=== PATIENT | female | born 1950 | race Caucasian/White ===

== ENCOUNTER → 2018-10-10 | Day surgery (SDC) | payer MEDICARE, BC ==
[2018-10-07 11:30] VITALS: BMI 48.5
[~2018-10-10] MED LIST: Ketamine 50 MG/ML (10ML VIAL) ONE
--- NOTE | 2018-10-10 11:27 | RAD ---
XR Lumbar Spine 2 Or 3 View History: Pre-MRI. Pain. Comparison: None. Findings: 5 nonrib-bearing lumbar type vertebrae. There is degenerative disc space disease at T12/L1 and L1/L2. In neutral position is 2 mm L4 over L5 anterolisthesis as well as 2 mm L2-L3 retrolisthesis and 4 mm L1 over L2 retrolisthesis. No significant translation with flexion or extensi on. Advanced degenerative disc space height loss L5-S1. Subcortical cysts are present in the right acetab ulum. Left hip arthroplasty. No abnormal calcifications are appreciated. Advanced facet arthrosis L4-S1. Mild narrowing of the interspinous space at L4-L5. Moderate vascular calcifications. Impression: Advanced degenerative changes without significant translation with flexion or extension.
== END ==
LOC: SDC/OP 09:43
PROVIDERS: ATTEND Surgery
DX: M51.25 Other intervertebral disc displacement, thoracolumbar region (principal); M51.36 Other intervertebral disc degeneration, lumbar region
CPT/HCPCS: 72100

== ENCOUNTER 2019-04-21 07:19 | Outpatient (CLI) | payer MEDICARE, BC ==
[2019-04-21 11:29] LABS: #Eosinphils 0.3 thou/uL (0.0-0.7); #Lymphocytes 2.4 thou/uL (1.20-3.40); #Monocytes 0.7 thou/uL (0.11-0.59); #Neutrophils 4.6 thou/uL (1.40-6.50); %Basophils 0.6 % (0.0-1.0); %Eosinophils 3.7 % (0.0-10.0); %Lymphocytes 29.8 % (21.0-51.0); %Monocytes 8.6 % (0.0-10.0); %Neutrophils 57.3 % (42.0-75.0); Hemoglobin 14.6 g/dL (12.0-16.0); Mean Corpuscular HGB CONC 33.3 g/dL (32.0-36.0); Mean Corpuscular Hemoglobin 31.9 pg (27.0-31.0); Mean Corpuscular Volume 95.6 fL (78.0-98.0); Mean Platelet Volume 8.6 fL (7.4-10.4); Platelet Count 244 thou/uL (130-400); RBC Distribution Width 13.3 % (11.5-14.5); White Blood Cell (WBC) Count 7.9 thou/uL (4.8-10.8)
[2019-04-21 11:38] LABS: Bacteria/HPF None Seen HPF (None Seen); Bilirubin Negative (Negative); Blood, Urine Negative (Negative); Clarity Clear (Clear); Glucose, Urine (Dipstick) Normal (Negative); Leukocyte Negative Leu/uL (Negative); Nitrite Negative (Negative); Protein, Urine (Dipstick) Negative (Neg-Trace); RBC/HPF 0-3 HPF (0-3); Squamous Epithelial 0-3 HPF (0-3); Urobilinogen Normal mg/dL (Less than 2)
[2019-04-21 11:41] LABS: INR-International Normal Ratio 0.9; Prothrombin Time 12.3 SEC (12.0-14.7)
[2019-04-21 11:47] LABS: Anion Gap 14 mmol/L (10-20); BUN (Urea Nitrogen) 22 mg/dL (9.8-20.1); Calc. Creatinine Clearance 0 mL/min (70-130); Calcium 9.7 mg/dL (7.8-10.44); Carbon Dioxide 30 mmol/L (23-31); Chloride 100 mmol/L (98-107); Estimated GFR-MDRD 75; Glucose 104 mg/dL (80-115); Potassium 4.3 mmol/L (3.5-5.1); Sodium 140 mmol/L (136-145)
== END 2019-04-21 07:20 | disposition home or self-care (01) ==
LOC: LABBT 07:19
PROVIDERS: ATTEND Orthopaedic Surgery
DX: Z01.812 Encounter for preprocedural laboratory examination (principal); M16.11 Unilateral primary osteoarthritis, right hip
CPT/HCPCS: 80048; 81001; 85025; 85610; 87081

== ENCOUNTER 2019-04-21 10:15 | Inpatient (IN) | payer MEDICARE, BC ==
[2019-04-21 10:26] VITALS: BMI 47.2
[2019-05-02] MEDS ORDERED: Sodium Chloride 0.9% 100 ML ONE (09:06)
[2019-05-02] MEDS ORDERED: Tranexamic Acid 1,000 MG/10 ML VIAL ONE (09:06)
[2019-05-02] MEDS ORDERED: Midazolam HCl 2 mg/2 ml Vial ONE (10:04)
[2019-05-02] MEDS ORDERED: Fentanyl 100 MCG/2 ML VIAL ONE ×4 (10:04→14:18)
[2019-05-02] MEDS ORDERED: PROPOFOL 200 MG/20 ML VIAL ONE (10:16)
[2019-05-02] MEDS ORDERED: Dexamethasone 20 MG/5 ML VIAL ONE (10:16)
[2019-05-02] MEDS ORDERED: Lidocaine 1.5% w/Epi 1:200K 30 ML VIAL (Epid Use) ONE (10:16)
[2019-05-02] MEDS ORDERED: Rocuronium Bromide 10 MG/ML (10ML VIAL) ONE (10:16)
[2019-05-02] MEDS ORDERED: PHENYLEPHRINE-NS 100 MCG/ML 10 ML SYRINGE ONE (10:16)
[2019-05-02] MEDS ORDERED: Ondansetron PF 4 MG/2 ML Vial ONE (10:16)
[2019-05-02] MEDS ORDERED: Lidocaine 1% PF 5 ML VIAL ONE (10:16)
[2019-05-02] MEDS ORDERED: Glycopyrrolate 0.2 MG/ML 5 ML SYRINGE ONE (10:16)
[2019-05-02] MEDS ORDERED: Bupivacaine 0.25% HCL 30 ML VIAL ONE (10:47)
[2019-05-02] MEDS ORDERED: Acetaminophen 325 MG TAB PO PRN ×2 (11:04→12:43)
[2019-05-02] MEDS ORDERED: Promethazine HCl 25 MG/ML VIAL IM PRN ×2 (11:15→12:43)
[2019-05-02] MEDS ORDERED: Bupivacaine 0.25% 10 ML VIAL EPIDURAL PRN (11:15)
[2019-05-02] MEDS ORDERED: Zolpidem Tartrate 5 MG TAB PO PRN ×2 (11:15→12:43)
[2019-05-02] MEDS ORDERED: Ondansetron PF 4 MG/2 ML Vial IVP PRN ×2 (11:15→12:43)
[2019-05-02] MEDS ORDERED: Naloxone HCl 0.4 mg/ml Vial IV PRN (11:15)
[2019-05-02] MEDS ORDERED: Promethazine HCl 25 MG SUPP PR PRN (11:15)
[2019-05-02] MEDS ORDERED: diphenhydrAMINE 50 MG/ML VIAL IVP PRN (11:15)
[2019-05-02] MEDS ORDERED: HYDROcodone/Acetaminophen 5/325 mg Tablet PO PRN (11:15)
[2019-05-02] MEDS ORDERED: diphenhydrAMINE 25 MG CAP PO PRN ×2 (11:15→12:43)
[2019-05-02] MEDS ORDERED: diphenhydrAMINE 50 MG/ML VIAL IM PRN (11:15)
[2019-05-02] MEDS ORDERED: traMADol HCl 50 MG TAB PO PRN ×2 (11:15)
[2019-05-02] MEDS ORDERED: Hydrocerin (Eucerin) Cream 120 gm Jar TOP PRN (11:15)
[2019-05-02] MEDS ORDERED: Naloxone HCl 0.4 mg/ml Vial IVP PRN (11:15)
[2019-05-02] MEDS ORDERED: Ketorolac Tromethamine 30 MG/ML VIAL IVP SCH (12:00)
[2019-05-02] MEDS ORDERED: Ketorolac Tromethamine 30 MG/ML VIAL IVP PRN (12:43)
[2019-05-02] MEDS ORDERED: HYDROcodone/Acetaminophen 10/325 mg Tablet PO PRN ×2 (12:43)
[2019-05-02] MEDS ORDERED: PROVENTIL INHALER 6.7 G (200 INHALATIONS) INH PRN (12:50)
[2019-05-02] MEDS ORDERED: Ondansetron HCl/PF 4 MG/2 ML Vial IVP PRN (13:06)
[2019-05-02] MEDS ORDERED: Ketorolac Tromethamine 30 MG/ML VIAL ONE (13:33)
--- NOTE | 2019-05-02 14:16 | RAD ---
EXAM: 2 views of the right hip HISTORY: Status post right hip arthroplasty COMPARISON: None FINDINGS: 2 views of the right hip shows the patient is status post right hip arthroplasty without pe rihardware lucency or fracture. IMPRESSION: Status post right hip arthroplasty without evidence of complication.
[2019-05-02] MEDS: Sodium Chloride 0.9% 1,000 ML IV SCH ×2 (14:47→21:31)
[2019-05-02] MEDS: Gabapentin 300 MG CAP PO SCH ×2 (17:57→21:27)
[2019-05-02] MEDS: Acetaminophen 500 MG TAB PO SCH (21:27)
[2019-05-02] MEDS: Aspirin 81 mg Enteric Coated Tablet PO SCH (21:27)
[2019-05-02] MEDS: Ferrous Gluconate 324 MG TAB PO SCH (21:27)
[2019-05-02] MEDS: Senokot S 8.6-50 MG TAB PO SCH (21:28)
[2019-05-02] MEDS: Simvastatin 20 MG TAB PO SCH (21:28)
[2019-05-02] MEDS: Losartan 25 MG TAB PO SCH (21:28)
[2019-05-02] MEDS: OXcarbazepine 150 MG TAB PO SCH (21:28)
[2019-05-03 04:51] LABS: Hemoglobin 11.9 g/dL (12.0-16.0); Mean Corpuscular HGB CONC 34.1 g/dL (32.0-36.0); Mean Corpuscular Hemoglobin 32.6 pg (27.0-31.0); Mean Corpuscular Volume 95.6 fL (78.0-98.0); Mean Platelet Volume 9.3 fL (7.4-10.4); Platelet Count 174 thou/uL (130-400); RBC Distribution Width 13.3 % (11.5-14.5); Red Blood Cell (RBC) Count 3.66 mill/uL (4.20-5.40); White Blood Cell (WBC) Count 10.7 thou/uL (4.8-10.8)
[2019-05-03] MEDS: fentaNYL Citrate/PF 500 MCG, Bupivacaine 10 ML in Sodium Chloride 0.9% 80 ML EPIDURAL SCH ×2 (05:37→21:48)
[2019-05-03] MEDS: Acetaminophen 500 MG TAB PO SCH ×2 (08:09→20:33)
[2019-05-03] MEDS: Aspirin 81 mg Enteric Coated Tablet PO SCH ×2 (08:09→20:33)
[2019-05-03] MEDS: OXcarbazepine 300 MG TAB PO SCH (08:09)
[2019-05-03] MEDS: Senokot S 8.6-50 MG TAB PO SCH ×2 (08:09→20:32)
[2019-05-03] MEDS: Multivitamin W/ Minerals 1 TAB PO SCH (08:09)
[2019-05-03] MEDS: Gabapentin 300 MG CAP PO SCH ×3 (08:10→20:32)
[2019-05-03] MEDS: Ferrous Gluconate 324 MG TAB PO SCH ×2 (08:10→20:32)
[2019-05-03] MEDS: HYDROcodone/Acetaminophen 5/325 mg Tablet PO PRN ×2 (08:10→13:31)
--- NOTE | 2019-05-03 08:32 | OP ---
DATE OF PROCEDURE: 05/02/2019 PREOPERATIVE DIAGNOSIS: Degenerative joint disease, right hip. POSTOPERATIVE DIAGNOSIS: Degenerative joint disease, right hip. PROCEDURE PERFORMED: Right total hip arthroplasty using a [place] Accolade II #5 stem, 54 mm Tritanium cup, a ceramic 36-mm, -5 head. ASSISTANTS: Kieran. BLOOD LOSS: 300. SPECIMEN: None. DRAINS: None. COMPLICATIONS: None. PROCEDURE IN DETAIL: After informed consent was obtained in the preoperative holding area, the patient was taken to the operative suite where general anesthesia was induced. The patient was then positioned in the lateral decubitus position. The hip was then prepped and draped in usual sterile fashion. The patient received preoperative antibiotics. Prior to incision, time-out was called and all members of the surgical team agreed upon site, surgeon, and patient. After this, a longitudinal incision was made directly over the trochanter, noted by palpation extending 2 fingerbreadths above and below the trochanter. The deeper subcutaneous layer was undermined with Bovie electrocautery. The iliotibial band was encountered and incised sharply and the plane below this was developed bluntly. A Charnley retractor was placed to hold this opened. The lateral aspect of the trochanter and the abductor muscles were encountered and then reflected anteriorly off the trochanter using Bovie electrocautery. Once this was completed, the anterior capsule was then encountered and identified and copious capsulotomy was carried out, exposing the femoral neck and head. Dislocation maneuver was then performed and an in situ provisional neck cut was then made using the oscillating saw. Attention was then turned to acetabular preparation and sequential reaming was carried out up to the appropriate diameter. A trial was then malleted into place with good firm resistance and no pullout. The permanent acetabular shell was then malleted squarely into place, as was the appropriate liner. Once completed, the wound was copiously irrigated and attention was then turned to femoral preparation. Flexion and external rotation were performed of the exposed thigh and femoral elevators were then placed at the proximal aspect of the wound. Canal finder was used to establish the length of the canal and sequential reaming was carried out, followed by broaching. Once the appropriate stability was established with the trial broaches with flexion, extension and rotational stability, we did trial with neutral and 2 mm offset incremental necks. Once the appropriate size was decided upon, with good stability noted with flexion, extension, internal and external rotation and shuck being negative, we removed the femoral trial broach and malletted into place the permanent prosthesis with good firm fit, which was also stable to rotation. Again, the hip felt very stable to flexion, extension, internal and external rotation. Leg lengths appeared near anatomic clinically and we were quite happy with prosthesis placement. Copious irrigation was then carried out through the entirety of the wound. Primary closure of the abductors was accomplished with interrupted #2 Vicryl [id number] stitches and the IT band was then closed with interrupted #2 Vicryl, oversewn with a #2 running barbed Quill stitch. Subcutaneous fascia was closed with running barbed Quill stitch and a subcuticular Monocryl barbed Quill stitch was used for skin closure and augmented with skin cement. A sterile dressing was applied. The procedure was terminated without any complication. All counts were correct. The patient was awakened in the operative suite and taken to the recovery room in stable condition. Job ID: [id number]
[2019-05-03] MEDS ORDERED: [UNRECOGNIZED DRUG - OTHER] PO SCH (09:00)
[2019-05-03] MEDS: Sodium Chloride 0.9% 1,000 ML IV SCH ×2 (11:24→18:55)
[2019-05-03] MEDS: Losartan 25 MG TAB PO SCH ×2 (11:24→20:30)
[2019-05-03] MEDS: Hydrochlorothiazide 25 MG TAB PO SCH (11:24)
--- NOTE | 2019-05-03 12:00 | PDOC.HOSPP ---
- Subjective Encounter Date: 05/03/19 Encounter Time: 07:45 Subjective: Patient seen and examined. No new complaints. No overnight events pt had right hip replacement consulted for medical management pt has no pain her BP is low but she is asymptomatic she has epidural, she is seated in chair, her is bedside she has walked few steps this morning - Objective Vital Signs & Weight: Vital Signs (12 hours) Temp Pulse Resp BP BP Pulse Ox 05/03/19 09:20 125/69 05/03/19 08:02 98.2 F 76 20 99/64 96 05/03/19 03:19 98.2 F 77 18 114/66 97 Weight Weight 302 lb I&O: 05/02/19 05/03/19 05/04/19 06:59 06:59 06:59 Intake Total 3360 Output Total 1350 Balance 2009 Result Diagrams: 05/03/19 04:16 Radiology Reviewed by me: Yes EKG Reviewed by me: Yes Hospitalist ROS - Review of Systems Eyes: denies: pain, vision change, conjunctivae inflammation, eyelid inflammation, redness, other ENT: denies: ear pain, ear discharge, nose pain, nose discharge, nose congestion , mouth pain, mouth swelling, throat pain, throat swelling, other Respiratory: denies: cough, dry, shortness of breath, hemoptysis, SOB with excertion, pleuritic pain, sputum, wheezing, other Cardiovascular: denies: chest pain, palpitations, orthopnea, paroxysmal noc. dyspnea, edema, light headedness, other Gastrointestinal: denies: nausea, vomiting, abdominal pain, diarrhea, constipation, melena, hematochezia, other Genitourinary: denies: dysuria, frequency, incontinence, hematuria, retention, other Musculoskeletal: reports: back pain. denies: neck pain, shoulder pain, arm pain , hand pain, leg pain, foot pain, other - Medication Medications: Active Medications Generic Name Dose Route Start Last Admin Trade Name Freq PRN Reason Stop Dose Admin Acetaminophen 1,000 mg 05/02/19 21:00 05/03/19 08:09 Tylenol PO 500 mg BID BLANCA Administration Hydrocodone Bitart/Acetaminophen 1 tab 05/02/19 11:15 05/03/19 08:10 [place] 5/325 PO 1 tab Q4H PRN Administration Mild Pain 1-3 Aspirin 81 mg 05/02/19 21:00 05/03/19 08:09 Ecotrin PO 81 mg BID BLANCA Administration Ferrous Gluconate 324 mg 05/02/19 21:00 05/03/19 08:10 Fergon PO 324 mg BID BLANCA Administration Gabapentin 300 mg 05/02/19 15:00 05/03/19 08:10 Neurontin PO 300 mg TID BLANCA Administration Hydrochlorothiazide 25 mg 05/03/19 09:00 05/03/19 11:24 Hydrochlorothiazide PO Not Given DAILY BLANCA Fentanyl Citrate 500 mcg/ 100 mls @ 6 mls/hr 05/02/19 11:15 05/03/19 05:37 Bupivacaine HCl 10 ml/ Sodium EPIDURAL 100 mls Chloride INF BALNCA Administration Sodium Chloride 1,000 mls @ 100 mls/hr 05/02/19 12:45 05/03/19 11:24 Normal Saline 0.9% IV Not Given .Q10H BLANCA Iron/Minerals/Multivitamins 1 tab 05/03/19 09:00 05/03/19 08:09 Theragran M PO 1 tab DAILY BLANCA Administration Losartan Potassium 50 mg 05/02/19 21:00 05/03/19 11:24 Cozaar PO Not Given BID BLANCA Oxcarbazepine 150 mg 05/02/19 21:00 05/02/19 21:28 Trileptal PO 150 mg HS BLANCA Administration Oxcarbazepine 300 mg 05/03/19 09:00 05/03/19 08:09 Trileptal PO 300 mg DAILY BLANCA Administration Senna/Docusate Sodium 2 tab 05/02/19 21:00 05/03/19 08:09 Senokot S PO 2 tab BID BLANCA Administration Simvastatin 20 mg 05/02/19 21:00 05/02/19 21:28 Zocor PO 20 mg QPM BLANCA Administration Sodium Chloride 10 ml 05/02/19 12:43 05/03/19 08:12 Flush - Normal Saline IVF 10 ml PRN PRN Administration Saline Flush - Exam General Appearance: NAD, awake alert Eye: PERRL, anicteric sclera ENT: normocephalic atraumatic, no oropharyngeal lesions Neck: supple, symmetric, no JVD, no thyromegaly Heart: RRR, no murmur, no gallops, no rubs Respiratory: CTAB, no wheezes, no rales, no ronchi Gastrointestinal: soft, non-tender, non-distended, normal bowel sounds Gastrointestinal - other findings: morbid obesity Extremities: no cyanosis, no clubbing, no edema Skin: normal turgor, no lesions Neurological: cranial nerve grossly intact, normal sensation to touch, no weakness, no focal deficits Musculoskeletal: normal tone, normal strength Psychiatric: normal affect, normal behavior, A&O x 3 Hosp A/P (1) Status post right hip replacement Code(s): Z96.641 - PRESENCE OF RIGHT ARTIFICIAL HIP JOINT Status: Acute (2) Morbid obesity with BMI of 45.0-49.9, adult Code(s): E66.01 - MORBID (SEVERE) OBESITY DUE TO EXCESS CALORIES; Z68.42 - BODY MASS INDEX (BMI) 45.0-49.9, ADULT Status: Chronic (3) Hypertension Code(s): I10 - ESSENTIAL (PRIMARY) HYPERTENSION Status: Chronic Qualifiers: Hypertension type: essential hypertension Qualified Code(s): I10 - Essential (primary) hypertension (4) Dyslipidemia Code(s): E78.5 - HYPERLIPIDEMIA, UNSPECIFIED Status: Chronic (5) Chronic low back pain Code(s): M54.5 - LOW BACK PAIN; G89.29 - OTHER CHRONIC PAIN Status: Chronic Qualifiers: Back pain laterality: unspecified Sciatica presence: without sciatica Qualified Code(s): M54.5 - Low back pain; G89.29 - Other chronic pain (6) Anemia, normocytic normochromic Code(s): D64.9 - ANEMIA, UNSPECIFIED Status: Chronic - Plan old records reviewed/req, plan discussed w/ family, david catheter, PT/OT, DVT proph w/SCDs 05/03/19 medication reviewed and continue to provide symptomatic care and supportive care medically stable, hold BP meds if SBP <120 continue PT/OT continue aspirin for DVT prophylaxis as per protocol pain controlled epidural as per anesthesia
[2019-05-03] MEDS: Ondansetron ODT 4 MG TAB PO PRN (15:25)
[2019-05-03] MEDS: Simvastatin 20 MG TAB PO SCH (20:34)
[2019-05-03] MEDS: OXcarbazepine 150 MG TAB PO SCH (20:39)
[2019-05-04 05:07] LABS: Hemoglobin 11.5 g/dL (12.0-16.0); Mean Corpuscular HGB CONC 31.9 g/dL (32.0-36.0); Mean Corpuscular Hemoglobin 31.2 pg (27.0-31.0); Mean Corpuscular Volume 97.8 fL (78.0-98.0); Mean Platelet Volume 8.7 fL (7.4-10.4); Platelet Count 131 thou/uL (130-400); RBC Distribution Width 13.7 % (11.5-14.5); Red Blood Cell (RBC) Count 3.69 mill/uL (4.20-5.40); White Blood Cell (WBC) Count 9.4 thou/uL (4.8-10.8)
[2019-05-04] MEDS: Sodium Chloride 0.9% 1,000 ML IV SCH ×2 (05:23→14:13)
[2019-05-04] MEDS: Ondansetron ODT 4 MG TAB PO PRN (06:44)
[2019-05-04] MEDS: HYDROcodone/Acetaminophen 5/325 mg Tablet PO PRN (06:45)
[2019-05-04] MEDS: Hydrochlorothiazide 25 MG TAB PO SCH (08:09)
[2019-05-04] MEDS: Gabapentin 300 MG CAP PO SCH ×3 (08:09→19:58)
[2019-05-04] MEDS: Aspirin 81 mg Enteric Coated Tablet PO SCH ×2 (08:09→19:57)
[2019-05-04] MEDS: Multivitamin W/ Minerals 1 TAB PO SCH (08:09)
[2019-05-04] MEDS: Losartan 25 MG TAB PO SCH ×2 (08:10→20:04)
[2019-05-04] MEDS: Ferrous Gluconate 324 MG TAB PO SCH ×2 (08:12→19:58)
[2019-05-04] MEDS: Senokot S 8.6-50 MG TAB PO SCH ×2 (08:12→19:58)
[2019-05-04] MEDS: Acetaminophen 500 MG TAB PO SCH ×2 (08:14→19:57)
[2019-05-04] MEDS ORDERED: HYDROcodone/Acetaminophen 7.5/325 mg Tablet PO PRN (10:35)
[2019-05-04] MEDS: OXcarbazepine 300 MG TAB PO SCH (10:48)
[2019-05-04] MEDS: HYDROcodone/Acetaminophen 7.5/325 mg Tablet PO PRN ×2 (14:29→18:40)
--- NOTE | 2019-05-04 15:20 | PDOC.HOSPP ---
- Subjective Encounter Date: 05/04/19 Encounter Time: 09:30 Subjective: Patient seen and examined. No new complaints. No overnight events pain with PT, oxygen saturation remains low with walking - Objective Vital Signs & Weight: Vital Signs (12 hours) Temp Pulse Resp BP BP Pulse Ox Pulse Ox 05/04/19 12:01 98.3 F 85 20 122/72 96 05/04/19 09:25 90 L 05/04/19 08:42 84 L 05/04/19 08:10 98.7 F 82 18 111/71 97 05/04/19 08:00 96 05/04/19 04:00 98.6 F 76 18 111/67 99 Pulse Ox Pulse Ox 05/04/19 12:01 05/04/19 09:25 94 L 95 05/04/19 08:42 94 L 05/04/19 08:10 05/04/19 08:00 05/04/19 04:00 Weight Admit Weight 302 lb Weight 302 lb I&O: 05/03/19 05/04/19 05/05/19 06:59 06:59 06:59 Intake Total 3360 1600 500 Output Total 1350 1275 1550 Balance 2009 325 1050 Result Diagrams: 05/04/19 04:47 Hospitalist ROS - Review of Systems ENT: denies: ear pain, ear discharge, nose pain, nose discharge, nose congestion , mouth pain, mouth swelling, throat pain, throat swelling, other Respiratory: denies: cough, dry, shortness of breath, hemoptysis, SOB with excertion, pleuritic pain, sputum, wheezing, other Cardiovascular: denies: chest pain, palpitations, orthopnea, paroxysmal noc. dyspnea, edema, light headedness, other Gastrointestinal: denies: nausea, vomiting, abdominal pain, diarrhea, constipation, melena, hematochezia, other Genitourinary: denies: dysuria, frequency, incontinence, hematuria, retention, other Musculoskeletal: denies: neck pain, shoulder pain, arm pain, back pain, hand pain, leg pain, foot pain, other - Medication Medications: Active Medications Generic Name Dose Route Start Last Admin Trade Name Freq PRN Reason Stop Dose Admin Acetaminophen 1,000 mg 05/02/19 21:00 05/04/19 08:14 Tylenol PO Not Given BID BLANCA Hydrocodone Bitart/Acetaminophen 1 tab 05/04/19 10:35 05/04/19 14:29 [place] 7.5/325 PO 1 tab Q4H PRN Administration Moderate Pain (4-6) Aspirin 81 mg 05/02/19 21:00 05/04/19 08:09 Ecotrin PO 81 mg BID BLANCA Administration Ferrous Gluconate 324 mg 05/02/19 21:00 05/04/19 08:12 Fergon PO 324 mg BID BLANCA Administration Gabapentin 300 mg 05/02/19 15:00 05/04/19 14:29 Neurontin PO 300 mg TID BLANCA Administration Hydrochlorothiazide 25 mg 05/03/19 09:00 05/04/19 08:09 Hydrochlorothiazide PO Not Given DAILY BLANCA Sodium Chloride 1,000 mls @ 100 mls/hr 05/02/19 12:45 05/04/19 14:13 Normal Saline 0.9% IV Not Given .Q10H BLANCA Iron/Minerals/Multivitamins 1 tab 05/03/19 09:00 05/04/19 08:09 Theragran M PO 1 tab DAILY BLANCA Administration Losartan Potassium 50 mg 05/02/19 21:00 05/04/19 08:10 Cozaar PO Not Given BID BLANCA Ondansetron HCl 4 mg 05/02/19 12:43 05/03/19 13:32 Zofran IVP 4 mg Q6H PRN Administration Nausea/Vomiting Ondansetron HCl 4 mg 05/03/19 13:19 05/04/19 06:44 Zofran Odt PO 4 mg Q6H PRN Administration Nausea/Vomiting Oxcarbazepine 150 mg 05/02/19 21:00 05/03/19 20:39 Trileptal PO 150 mg HS BLANCA Administration Oxcarbazepine 300 mg 05/03/19 09:00 05/04/19 10:48 Trileptal PO 300 mg DAILY BLANCA Administration Senna/Docusate Sodium 2 tab 05/02/19 21:00 05/04/19 08:12 Senokot S PO 2 tab BID BLANCA Administration Simvastatin 20 mg 05/02/19 21:00 05/03/19 20:34 Zocor PO 20 mg QPM BLANCA Administration Sodium Chloride 10 ml 05/02/19 12:43 05/03/19 08:12 Flush - Normal Saline IVF 10 ml PRN PRN Administration Saline Flush - Exam General Appearance: NAD, awake alert Eye: PERRL, anicteric sclera ENT: normocephalic atraumatic, no oropharyngeal lesions Neck: supple, symmetric, no JVD Heart: RRR, no murmur, no gallops, no rubs Respiratory: CTAB, no wheezes, no rales, no ronchi Gastrointestinal: soft, non-tender, non-distended, normal bowel sounds Extremities: no cyanosis, no clubbing, no edema Skin: normal turgor, no lesions Neurological: cranial nerve grossly intact, no focal deficits Musculoskeletal: normal tone, normal strength Psychiatric: normal affect, normal behavior Hosp A/P (1) Status post right hip replacement Code(s): Z96.641 - PRESENCE OF RIGHT ARTIFICIAL HIP JOINT Status: Acute (2) Morbid obesity with BMI of 45.0-49.9, adult Code(s): E66.01 - MORBID (SEVERE) OBESITY DUE TO EXCESS CALORIES; Z68.42 - BODY MASS INDEX (BMI) 45.0-49.9, ADULT Status: Chronic (3) Hypertension Code(s): I10 - ESSENTIAL (PRIMARY) HYPERTENSION Status: Chronic Qualifiers: Hypertension type: essential hypertension Qualified Code(s): I10 - Essential (primary) hypertension (4) Dyslipidemia Code(s): E78.5 - HYPERLIPIDEMIA, UNSPECIFIED Status: Chronic (5) Chronic low back pain Code(s): M54.5 - LOW BACK PAIN; G89.29 - OTHER CHRONIC PAIN Status: Chronic Qualifiers: Back pain laterality: unspecified Sciatica presence: without sciatica Qualified Code(s): M54.5 - Low back pain; G89.29 - Other chronic pain (6) Anemia, normocytic normochromic Code(s): D64.9 - ANEMIA, UNSPECIFIED Status: Chronic - Plan old records reviewed/req, plan discussed w/ family, PT/OT 05/03/19 medication reviewed and continue to provide symptomatic care and supportive care medically stable, hold BP meds if SBP <120 continue PT/OT continue aspirin for DVT prophylaxis as per protocol pain controlled epidural as per anesthesia 05/04/19 monitor oxygen saturation with PT pain control epidural as per anesthesia
[2019-05-04] MEDS: OXcarbazepine 150 MG TAB PO SCH (20:01)
[2019-05-04] MEDS: Simvastatin 20 MG TAB PO SCH (20:01)
[2019-05-05] MEDS: Sodium Chloride 0.9% 1,000 ML IV SCH ×2 (01:56→10:38)
[2019-05-05] MEDS: HYDROcodone/Acetaminophen 7.5/325 mg Tablet PO PRN (03:18)
[2019-05-05] MEDS: Losartan 25 MG TAB PO SCH (08:52)
[2019-05-05] MEDS: Acetaminophen 500 MG TAB PO SCH (08:52)
[2019-05-05] MEDS: Multivitamin W/ Minerals 1 TAB PO SCH (08:52)
[2019-05-05] MEDS: Senokot S 8.6-50 MG TAB PO SCH (08:52)
[2019-05-05] MEDS: Ferrous Gluconate 324 MG TAB PO SCH (08:52)
[2019-05-05] MEDS: Gabapentin 300 MG CAP PO SCH ×2 (08:52→14:15)
[2019-05-05] MEDS: Aspirin 81 mg Enteric Coated Tablet PO SCH (08:52)
[2019-05-05] MEDS: Hydrochlorothiazide 25 MG TAB PO SCH (08:53)
[2019-05-05] MEDS: Ondansetron ODT 4 MG TAB PO PRN (09:02)
--- NOTE | 2019-05-05 09:25 | PDOC.HOSPP ---
- Subjective Encounter Date: 05/05/19 Encounter Time: 07:30 Subjective: Patient seen and examined. No new complaints. No overnight events - Objective Vital Signs & Weight: Vital Signs (12 hours) Temp Pulse Resp BP BP Pulse Ox 05/05/19 07:24 98.7 F 79 18 144/81 H 97 05/05/19 03:21 98.2 F 96 20 142/70 H 97 05/04/19 23:12 98.4 F 77 18 92/58 L 99 Weight Admit Weight 302 lb Weight 302 lb I&O: 05/04/19 05/05/19 05/06/19 06:59 06:59 06:59 Intake Total 1600 2700 Output Total 1275 1550 Balance 325 1150 Result Diagrams: 05/04/19 04:47 Hospitalist ROS - Review of Systems ENT: denies: ear pain, ear discharge, nose pain, nose discharge, nose congestion , mouth pain, mouth swelling, throat pain, throat swelling, other Respiratory: denies: cough, dry, shortness of breath, hemoptysis, SOB with excertion, pleuritic pain, sputum, wheezing, other Cardiovascular: denies: chest pain, palpitations, orthopnea, paroxysmal noc. dyspnea, edema, light headedness, other Gastrointestinal: denies: nausea, vomiting, abdominal pain, diarrhea, constipation, melena, hematochezia, other Genitourinary: denies: dysuria, frequency, incontinence, hematuria, retention, other Musculoskeletal: denies: neck pain, shoulder pain, arm pain, back pain, hand pain, leg pain, foot pain, other - Medication Medications: Active Medications Generic Name Dose Route Start Last Admin Trade Name Freq PRN Reason Stop Dose Admin Acetaminophen 1,000 mg 05/02/19 21:00 05/05/19 08:52 Tylenol PO 1,000 mg BID BLANCA Administration Hydrocodone Bitart/Acetaminophen 1 tab 05/04/19 10:35 05/05/19 03:18 [place] 7.5/325 PO 1 tab Q4H PRN Administration Moderate Pain (4-6) Aspirin 81 mg 05/02/19 21:00 05/05/19 08:52 Ecotrin PO 81 mg BID BLANCA Administration Ferrous Gluconate 324 mg 05/02/19 21:00 05/05/19 08:52 Fergon PO 324 mg BID BLANCA Administration Gabapentin 300 mg 05/02/19 15:00 05/05/19 08:52 Neurontin PO 300 mg TID BLANCA Administration Hydrochlorothiazide 25 mg 05/03/19 09:00 05/05/19 08:53 Hydrochlorothiazide PO 25 mg DAILY BLANCA Administration Sodium Chloride 1,000 mls @ 100 mls/hr 05/02/19 12:45 05/05/19 01:56 Normal Saline 0.9% IV Not Given .Q10H BLANCA Iron/Minerals/Multivitamins 1 tab 05/03/19 09:00 05/05/19 08:52 Theragran M PO 1 tab DAILY BLANCA Administration Losartan Potassium 50 mg 05/02/19 21:00 05/05/19 08:52 Cozaar PO 50 mg BID BLANCA Administration Ondansetron HCl 4 mg 05/02/19 12:43 05/03/19 13:32 Zofran IVP 4 mg Q6H PRN Administration Nausea/Vomiting Ondansetron HCl 4 mg 05/03/19 13:19 05/05/19 09:02 Zofran Odt PO 4 mg Q6H PRN Administration Nausea/Vomiting Oxcarbazepine 150 mg 05/02/19 21:00 05/04/19 20:01 Trileptal PO 150 mg HS BLANCA Administration Senna/Docusate Sodium 2 tab 05/02/19 21:00 05/05/19 08:52 Senokot S PO 2 tab BID BLANCA Administration Simvastatin 20 mg 05/02/19 21:00 05/04/19 20:01 Zocor PO 20 mg QPM BLANCA Administration Sodium Chloride 10 ml 05/02/19 12:43 05/03/19 08:12 Flush - Normal Saline IVF 10 ml PRN PRN Administration Saline Flush - Exam General Appearance: NAD, awake alert Eye: PERRL, anicteric sclera ENT: normocephalic atraumatic, no oropharyngeal lesions Neck: supple, symmetric, no JVD, no thyromegaly Heart: RRR, no murmur, no gallops Respiratory: CTAB, no wheezes, no rales, no ronchi Gastrointestinal: soft, non-tender, non-distended, normal bowel sounds Extremities: no cyanosis, no clubbing, no edema Skin: normal turgor, no lesions Neurological: no focal deficits Musculoskeletal: normal tone, normal strength Psychiatric: normal affect, normal behavior Hosp A/P (1) Status post right hip replacement Code(s): Z96.641 - PRESENCE OF RIGHT ARTIFICIAL HIP JOINT Status: Acute (2) Morbid obesity with BMI of 45.0-49.9, adult Code(s): E66.01 - MORBID (SEVERE) OBESITY DUE TO EXCESS CALORIES; Z68.42 - BODY MASS INDEX (BMI) 45.0-49.9, ADULT Status: Chronic (3) Hypertension Code(s): I10 - ESSENTIAL (PRIMARY) HYPERTENSION Status: Chronic Qualifiers: Hypertension type: essential hypertension Qualified Code(s): I10 - Essential (primary) hypertension (4) Dyslipidemia Code(s): E78.5 - HYPERLIPIDEMIA, UNSPECIFIED Status: Chronic (5) Chronic low back pain Code(s): M54.5 - LOW BACK PAIN; G89.29 - OTHER CHRONIC PAIN Status: Chronic Qualifiers: Back pain laterality: unspecified Sciatica presence: without sciatica Qualified Code(s): M54.5 - Low back pain; G89.29 - Other chronic pain (6) Anemia, normocytic normochromic Code(s): D64.9 - ANEMIA, UNSPECIFIED Status: Chronic (7) PATRICIA (obstructive sleep apnea) Code(s): G47.33 - OBSTRUCTIVE SLEEP APNEA (ADULT) (PEDIATRIC) Status: Acute - Plan old records reviewed/req, plan discussed w/ family, PT/OT, licensed social worker 05/03/19 medication reviewed and continue to provide symptomatic care and supportive care medically stable, hold BP meds if SBP <120 continue PT/OT continue aspirin for DVT prophylaxis as per protocol pain controlled epidural as per anesthesia 05/04/19 monitor oxygen saturation with PT pain control epidural as per anesthesia 05/05/19 medication reviewed, continue to provide symptomatic care and supportive care may need oxygen on discharge she has cpap at home but non compliant with that continue pain control
[2019-05-05] MEDS ORDERED: OXcarbazepine 300 MG TAB PO SCH (10:15)
[2019-05-05] MEDS: OXcarbazepine 150 MG TAB PO SCH ×2 (10:34→11:02)
[2019-05-05 10:51] VITALS: BP 111/79; TEMP 98.5
--- NOTE | 2019-05-06 07:48 | DIS ---
DATE OF ADMISSION: 05/02/2019 DATE OF DISCHARGE: 05/05/2019 PRIMARY CARE PHYSICIAN: Dr. Miley Pettit. DISCHARGE DISPOSITION: Home. PRIMARY DISCHARGE DIAGNOSIS: Status post right total hip replacement. SECONDARY DISCHARGE DIAGNOSIS: Obstructive sleep apnea, osteoarthritis, normocytic normochromic anemia, chronic low back pain, hypertension, dyslipidemia, morbid obesity with body mass index of 47. PRIMARY PROCEDURE/OPERATION: Right hip replacement. RADIOLOGICAL INVESTIGATION: Hip x-ray. SIGNIFICANT LABORATORY DATA: WBC 9.4, hemoglobin 11.5, platelet 131. DISCHARGE MEDICATION: 1. Tylenol Extra Strength one or two tablets q.12 hourly p.r.n. 2. Proventil HFA 2 puffs q.6 hourly p.r.n. 3. Gabapentin 300 mg t.i.d. 4. Hydrochlorothiazide 25 mg p.o. daily. 5. Losartan 50 mg p.o. b.i.d. 6. Oxcarbazepine 300 mg daily and 150 mg at bedtime. 7. Zocor 20 mg p.o. at bedtime. 8. Aspirin 81 mg p.o. b.i.d. CONTRAINDICATION: None. CODE STATUS: Full code. INPATIENT [employer]: Dr. Love was primary. Hospitalist group was consulted for medical management. TEST RESULT PENDING ON DISCHARGE: None. ALLERGIES: SULFA DRUGS. DISCHARGE PLAN: Posthospital, the patient will follow up with primary care physician, and the patient has appointment with Dr. Love on May 24, 2019 at 1:00 p.m. HOSPITAL COURSE: A 69-year-old female, who was electively admitted by Dr. Love for right hip replacement, which was done on May 02, 2019. Postoperatively, Hospitalist group was consulted for medical comanagement. The patient's all medical problems remained stable. We continued all her home medication while in hospital as well as on discharge. The patient's pain was controlled with epidural as well as pain medication. The patient's oxygen saturation was relatively dropping, but she was not qualifying for home oxygen therapy upon discharge. The patient is seen and examined at bedside today on the day of discharge and the patient is planned for home with outpatient home health. Please see my progress note from the day of admission. Job ID: [id number]
[2019-05-06] MEDS ORDERED: OXcarbazepine 300 MG TAB PO SCH (09:00)
== END 2019-05-05 14:52 | disposition home or self-care (01) | DRG 470 ==
LOC: SURG A 05-02 08:34 → EDSTATUS 05-02 10:15 → SJJU 05-02 14:30
PROVIDERS: ADMIT Orthopaedic Surgery; ATTEND Orthopaedic Surgery
PROC: 0SR903Z Replacement of Right Hip Joint with Ceramic Synthetic Substitute, Open Approach (ICD-10-PCS; principal; 2019-05-02)
DX: M16.11 Unilateral primary osteoarthritis, right hip (principal); Z68.42 Body mass index [BMI] 45.0-49.9, adult; I10 Essential (primary) hypertension; E78.00 Pure hypercholesterolemia, unspecified; Z96.642 Presence of left artificial hip joint; Z96.651 Presence of right artificial knee joint; M48.061 Spinal stenosis, lumbar region without neurogenic claudication; J30.2 Other seasonal allergic rhinitis; G50.0 Trigeminal neuralgia; Z88.2 Allergy status to sulfonamides; Z79.899 Other long term (current) drug therapy; Z79.51 Long term (current) use of inhaled steroids; Z99.89 Dependence on other enabling machines and devices; E66.01 Morbid (severe) obesity due to excess calories; E78.5 Hyperlipidemia, unspecified; G89.29 Other chronic pain; D64.9 Anemia, unspecified; G47.33 Obstructive sleep apnea (adult) (pediatric); M54.5 Low back pain
CPT/HCPCS: 36415; 85027; J0690; J1100; J1885; J2001; J2250; J2405; J2704; J3010; J3370; J3490; J7050; Q0162; S0020